=== PATIENT | female | born 1995 | race American Indian/Alaskan Native ===

== ENCOUNTER 2020-02-22 08:07 | Emergency (ER) | payer OTHER ==
[2020-02-22 08:32] VITALS: BP 111/54
[2020-02-22 09:06] LABS: Bacteria,Urine 2+ /HPF (Negative); Bilirubin,Urine NEG (Negative); Blood,Urine SM (Negative); Color,Urine Yellow (Yellow); Mucus,Urine 3+ /HPF; Protein,Urine <15 mg/dL mg/dL (Negative); Urobilinogen,Urine < 2.0 mg/dL (<2.0)
[2020-02-22 09:07] LABS: HCG Qualitative,Urine Negative (Negative)
--- NOTE | 2020-02-22 11:11 | Emergency Department Report ---
ED Female HPI - General Chief complaint: Urogenital-Female Stated complaint: POSSIBLE UTI Time Seen by Provider: 02/22/20 10:58 Source: patient Mode of arrival: Ambulatory Limitations: No Limitations - History of Present Illness Initial comments: This is a 24-year-old female nontoxic well in appearance with no acute signs of distress presents to the ED with complaints of dysuria and urinary frequency. Patient denies any pelvic or abdominal pain. Patient denies any other symptoms or complaitns. Denies any flank pain. Denies any chest pain, SOB, fever, chills, headache, stiff neck, numbness or tingling. Denies any allergies. MD Complaint: dysuria -: days(s) Radiation: non-radiating Severity: mild Severity scale (0 -10): 3 Quality: other (dysuria) Consistency: constant Improves with: none Worsens with: urination Are you Now?: No Associated Symptoms: dysuria. denies: vaginal discharge, vaginal bleeding, abdominal pain, nausea/vomiting, fever/chills, headaches, loss of appetite, hematuria, rash, seizure, shortness of breath, syncope, weakness - Related Data Previous Rx's Medication Instructions Recorded Last Taken Type Sulfamethoxazole/Trimethoprim 1 each PO BID #14 tablet 02/22/20 Unknown Rx [Bactrim DS TAB] Allergies Allergy/AdvReac Type Severity Reaction Status Date / Time No Known Allergies Allergy Unverified 02/22/20 08:28 ED Review of Systems ROS: Stated complaint: POSSIBLE UTI Other details as noted in HPI Constitutional: denies: chills, fever Eyes: denies: eye pain, eye discharge, vision change ENT: denies: ear pain, throat pain Respiratory: denies: cough, shortness of breath, wheezing Cardiovascular: denies: chest pain, palpitations Endocrine: no symptoms reported Gastrointestinal: denies: abdominal pain, nausea, diarrhea Genitourinary: dysuria, frequency. denies: urgency, hematuria, discharge, abnormal menses, dyspareunia Musculoskeletal: denies: back pain, joint swelling, arthralgia Skin: denies: rash, lesions Neurological: denies: headache, weakness, paresthesias Psychiatric: denies: anxiety, depression Hematological/Lymphatic: denies: easy bleeding, easy bruising ED Past Medical Hx - Past Medical History Previous Medical History?: No - Surgical History Past Surgical History?: No - Social History Smoking Status: Never Smoker Substance Use Type: None - Medications Home Medications: Home Medications Medication Instructions Recorded Confirmed Last Taken Type Sulfamethoxazole/Trimethoprim 1 each PO BID #14 tablet 02/22/20 Unknown Rx [Bactrim DS TAB] ED Physical Exam - General Limitations: No Limitations General appearance: alert, in no apparent distress - Head Head exam: Present: atraumatic, normocephalic - Eye Eye exam: Present: normal appearance - Neck Neck exam: Present: normal inspection, full ROM. Absent: tenderness, meningismus, lymphadenopathy - GI/Abdominal GI/Abdominal exam: Present: soft, normal bowel sounds. Absent: distended, tenderness, guarding, rebound, rigid, diminished bowel sounds - Extremities Exam Extremities exam: Present: normal inspection, full ROM - Back Exam Back exam: Present: normal inspection, full ROM. Absent: tenderness, CVA tenderness (R), CVA tenderness (L), muscle spasm, paraspinal tenderness, vertebral tenderness, rash noted - Neurological Exam Neurological exam: Present: alert, oriented X3, normal gait - Psychiatric Psychiatric exam: Present: normal affect, normal mood - Skin Skin exam: Present: warm, dry, intact, normal color. Absent: rash ED Course Vital Signs 02/22/20 08:28 Temperature 97.9 F Pulse Rate 54 L Respiratory 16 Rate Blood Pressure 111/54 [Right] O2 Sat by Pulse 100 Oximetry - Reevaluation(s) Reevaluation #1: 02/22/20 11:05 Patient is speaking in full sentences with no signs of distress noted. ED Medical Decision Making - Medical Decision Making 24-year-old with UTI. Patient is stable and was examined by me. VSS. WIll dc with bactrim. Patient was instructed to Follow-up with a primary care doctor in 3-5 days or if symptoms worsen and continue return to emergency room as soon as possible. At time of discharge, the patient does not seem toxic or ill in appearance. No acute signs of distress noted. Patient agrees to discharge treatment plan of care. No further questions noted by the patient. Critical care attestation.: If time is entered above; I have spent that time in minutes in the direct care of this critically ill patient, excluding procedure time. ED Disposition Clinical Impression: UTI (urinary tract infection) Qualifiers: Urinary tract infection type: acute cystitis Hematuria presence: with hematuria Qualified Code(s): N30.01 - Acute cystitis with hematuria Disposition: TO HOME OR SELFCARE Is pt being admited?: No Does the pt Need Aspirin: No Condition: Stable Instructions: Urinary Tract Infection in Women (ED) Additional Instructions: Follow-up with a primary care doctor in 3-5 days or if symptoms worsen and continue return to emergency room as soon as possible. Prescriptions: Sulfamethoxazole/Trimethoprim [Bactrim DS TAB] 1 each PO BID #14 tablet Referrals: ALDA HEREDIA MD [Primary Care Provider] - 3-5 Days ARGENIS BARAHONA MD [Staff Physician] - 3-5 Days [facility] [Provider Group] - 3-5 Days Forms: Work/School Release Form(ED)
== END 2020-02-22 11:18 | disposition home or self-care (01) ==
LOC: ED 08:07
DX: N39.0 Urinary tract infection, site not specified (principal); Z79.899 Other long term (current) drug therapy
CPT/HCPCS: 81001; 81025; 87076; 87086; 87186; 99283

== ENCOUNTER 2020-10-12 23:25 | Emergency (ER) | payer SELFPAY ==
[2020-10-13 00:55] LABS: Basophils % (Auto) 0.2 % (0.0-1.8); Hematocrit 40.2 % (30.3-42.9); Hemoglobin 13.6 gm/dl (10.1-14.3); Lymphocytes # (Auto) 0.9 K/mm3 (1.2-5.4); Lymphocytes % (Auto) 4.9 % (13.4-35.0); Mean Corpuscular HGB Conc 34 % (30-34); Mean Corpuscular Volume 89 fl (79-97); Monocytes # (Auto) 1.3 K/mm3 (0.0-0.8); Monocytes % (Auto) 7.6 % (0.0-7.3); Platelet Count 218 K/mm3 (140-440); Red Blood Count 4.49 M/mm3 (3.65-5.03); Red Cell Distribution Width 13.7 % (13.2-15.2)
[2020-10-13 00:57] LABS: Bilirubin,Urine NEG (Negative); Blood,Urine MOD (Negative); Color,Urine Yellow (Yellow); Mucus,Urine 3+ /HPF; Urobilinogen,Urine < 2.0 mg/dL (<2.0)
[2020-10-13 01:05] LABS: Alanine Aminotransferase 19 units/L (7-56); Albumin 4.4 g/dL (3.9-5); BUN/Creatinine Ratio 9; Blood Urea Nitrogen 7 mg/dL (7-17); Calcium 9.5 mg/dL (8.4-10.2); Hemolysis Index 2
--- NOTE | 2020-10-13 02:44 | XRay Report ---
CHEST 2 VIEWS INDICATION / CLINICAL INFORMATION: fever. COMPARISON: None available. FINDINGS: SUPPORT DEVICES: None. HEART / MEDIASTINUM: Heart is upper normal size. LUNGS / PLEURA: No significant pulmonary or pleural abnormality. No pneumothorax. ADDITIONAL FINDINGS: No significant additional findings. IMPRESSION: 1. No acute findings. Signer Name: Jigar Damico MD Signed: 10/13/2020 2:39 AM Workstation Name: [id number]
[2020-10-13] MEDS ORDERED: ONDANSETRON 4 MG/2 ML INJ IV ONE (02:59)
[2020-10-13] MEDS ORDERED: SODIUM CHLORIDE 0.9% 1000 ML 1,000 ML IV ONE (02:59)
--- NOTE | 2020-10-13 03:01 | Emergency Department Report ---
- General Chief Complaint: Nausea/Vomiting/Diarrhea Stated Complaint: FEVER/ VOMITING/SORE THROAT PUI?: No Time Seen by Provider: 10/13/20 02:16 Source: patient Mode of arrival: Ambulatory Limitations: No Limitations - History of Present Illness Initial Comments: Patient is a 25-year-old female who presents emergency room with complaints of nausea, vomiting, diarrhea, fever, sore throat, fatigue. Patient states she is not able to hold any food down. Patient states her symptoms started 3 days ago. Patient states that her symptoms are worsening. Patient states she is not feeling well at all. Patient denies chest pain. Patient denies shortness of breath. Patient denies abdominal pain. Patient denies loss of smell. Patient denies sick contacts. Patient denies dysuria. MD Complaint: fever, cough, sore throat -: Sudden, days(s) Severity: severe Consistency: constant Improves With: NSAID, OTC cold medicine Associated Symptoms: fever, chills, sore throat, cough, nausea, vomiting. denies: diaphoresis, headache, rhinorrhea, nasal congestion, stiff neck, chest pain, shortness of breath, abdominal pain, rash, confusion, right sweats, weight loss, epistaxis, hoarseness, ear pain Treatments Prior to Arrival: Acetaminophen, Ibuprofen - Related Data Previous Rx's Medication Instructions Recorded Last Taken Type Sulfamethoxazole/Trimethoprim 1 each PO BID #14 tablet 02/22/20 Unknown Rx [Bactrim DS TAB] Azithromycin [Zithromax TAB] 500 mg PO QDAY 5 Days #5 tablet 10/13/20 Unknown Rx Ondansetron [Zofran Odt] 4 mg PO Q6HR PRN #20 tab.rapdis 10/13/20 Unknown Rx methylPREDNISolone [Medrol 4MG 4 mg PO DAILY 6 Days #1 tab.ds.pk 10/13/20 Unknown Rx DOSEPAK (21 tabs)] Allergies Allergy/AdvReac Type Severity Reaction Status Date / Time No Known Allergies Allergy Unverified 02/22/20 08:28 ED Review of Systems ROS: Stated complaint: FEVER/ VOMITING/SORE THROAT Other details as noted in HPI Constitutional: chills, fever, malaise Eyes: denies: eye pain, eye discharge, vision change ENT: denies: ear pain, throat pain Respiratory: denies: cough, shortness of breath, wheezing Cardiovascular: denies: chest pain, palpitations Endocrine: no symptoms reported Gastrointestinal: nausea, vomiting, diarrhea. denies: abdominal pain, constipation, hematemesis, melena, hematochezia Genitourinary: denies: urgency, dysuria, discharge Musculoskeletal: denies: back pain, joint swelling, arthralgia Skin: denies: rash, lesions Neurological: denies: headache, weakness, paresthesias Psychiatric: denies: anxiety, depression Hematological/Lymphatic: denies: easy bleeding, easy bruising ED Past Medical Hx - Past Medical History Previous Medical History?: No - Surgical History Past Surgical History?: No - Family History Family history: no significant - Social History Smoking Status: Never Smoker Substance Use Type: None - Medications Home Medications: Home Medications Medication Instructions Recorded Confirmed Last Taken Type Sulfamethoxazole/Trimethoprim 1 each PO BID #14 tablet 02/22/20 Unknown Rx [Bactrim DS TAB] Azithromycin [Zithromax TAB] 500 mg PO QDAY 5 Days #5 tablet 10/13/20 Unknown Rx Ondansetron [Zofran Odt] 4 mg PO Q6HR PRN #20 tab.rapdis 10/13/20 Unknown Rx methylPREDNISolone [Medrol 4MG 4 mg PO DAILY 6 Days #1 tab.ds.pk 10/13/20 Unknown Rx DOSEPAK (21 tabs)] ED Physical Exam - General Limitations: No Limitations General appearance: alert, in no apparent distress - Head Head exam: Present: atraumatic, normocephalic - Eye Eye exam: Present: normal appearance - ENT ENT exam: Present: mucous membranes dry - Neck Neck exam: Present: normal inspection - Respiratory Respiratory exam: Present: normal lung sounds bilaterally. Absent: respiratory distress - Cardiovascular Cardiovascular Exam: Present: regular rate, normal rhythm. Absent: systolic murmur, diastolic murmur, rubs, gallop - GI/Abdominal GI/Abdominal exam: Present: soft, normal bowel sounds. Absent: distended, tenderness, guarding, rebound - Extremities Exam Extremities exam: Present: normal inspection - Back Exam Back exam: Present: normal inspection - Neurological Exam Neurological exam: Present: alert, oriented X3 - Psychiatric Psychiatric exam: Present: normal affect, normal mood - Skin Skin exam: Present: warm, dry, intact, normal color. Absent: rash ED Course Vital Signs 10/12/20 10/13/20 10/13/20 23:43 03:01 04:01 Temperature 103.0 F H Pulse Rate 122 H 99 H 99 H Respiratory 18 20 25 H Rate Blood Pressure 141/89 128/69 132/73 O2 Sat by Pulse 99 98 100 Oximetry 10/13/20 10/13/20 05:00 05:01 Temperature 103.1 F H Pulse Rate 104 H Respiratory 25 H Rate Blood Pressure 136/76 O2 Sat by Pulse 99 Oximetry - Reevaluation(s) Reevaluation #1: Patient states she is feeling better. 10/13/20 03:52 Reevaluation #2: Patient has received fluids and antibiotics and steroids. Patient states he is feeling much better. Patient denies nausea and vomiting. 10/13/20 04:32 Reevaluation #3: I discussed all results and clinical findings with patient. I discussed plan of care with patient. Patient agrees with plan of care. Patient is stable for discharge. Patient will be discharged home. Patient given discharge instructions. Patient voiced understanding of discharge instructions. 10/13/20 05:29 ED Medical Decision Making - Lab Data Result diagrams: 10/12/20 23:55 10/12/20 23:55 - Radiology Data Radiology results: image reviewed interpreted by me: Chest x-ray: No pneumonia, no pneumothorax, no foreign body, no osseous findings, no acute findings CHEST 2 VIEWS INDICATION / CLINICAL INFORMATION: fever. COMPARISON: None available. FINDINGS: SUPPORT DEVICES: None. HEART / MEDIASTINUM: Heart is upper normal size. LUNGS / PLEURA: No significant pulmonary or pleural abnormality. No pneumothorax. ADDITIONAL FINDINGS: No significant additional findings. IMPRESSION: 1. No acute findings. - Medical Decision Making Patient is a 25-year-old female that presents emergency room with complaints of upper respiratory symptoms to include cough, chills, nausea, vomiting, diarrhea. Patient has not been tested for Covid 19 as an outpatient. Patient had labs done which essentially unremarkable except for elevated WBC and UTI on UA.. Patient had a chest x-ray which was negative for acute findings and pneumonia. Patient was given multiple medications in the ER to include fluids, Rocephin, Zithromax, Decadron, Zofran. Patient responded well to treatment. Patient felt better after treatment. Patient's fever improved. Patient did not have any further nausea or vomiting in the ER. Patient clinical findings are consistent with URI and a PUI and Covid infection and UTI. Patient stable for discharge. Patient discharged home. - Differential Diagnosis Fever, Covid, flu, strep, sore throat, nausea vomiting, diarrhea Critical care attestation.: If time is entered above; I have spent that time in minutes in the direct care of this critically ill patient, excluding procedure time. ED Disposition Clinical Impression: Person under investigation for COVID-19, Sore throat Fever Qualifiers: Fever type: unspecified Qualified Code(s): R50.9 - Fever, unspecified URI (upper respiratory infection) Qualifiers: URI type: unspecified URI Qualified Code(s): J06.9 - Acute upper respiratory infection, unspecified Nausea & vomiting Qualifiers: Vomiting type: unspecified Vomiting Intractability: non-intractable Qualified Code(s): R11.2 - Nausea with vomiting, unspecified Disposition: DC-01 TO HOME OR SELFCARE Is pt being admited?: No Does the pt Need Aspirin: No Condition: Stable Instructions: Cough, Adult, Sore Throat, Upper Respiratory Infection, Adult, [id number], Fever, Adult, Cough, Adult, [id number], Prevent the Spread of COVID-19 if You Are Sick - CDC, COVID-19, COVID-19: How to Protect Yourself and Others - CDC, COVID-19 Additional Instructions: Patient to follow-up with primary care in 2 to 3 days. Patient to follow-up with health department and outpatient Covid testing in 2 to 3 days. Patient to self quarantine for 10 to 14 days. Patient to rest. Patient to start vitamin D, zinc and vitamin C supplements. Patient to take Tylenol or ibuprofen as needed for pain. Patient to take meds as directed. Patient to return to the ER if condition worsens, changes or new symptoms arise. Prescriptions: methylPREDNISolone [Medrol 4MG DOSEPAK (21 tabs)] 4 mg PO DAILY 6 Days #1 tab.ds.pk Azithromycin [Zithromax TAB] 500 mg PO QDAY 5 Days #5 tablet Ondansetron [Zofran Odt] 4 mg PO Q6HR PRN #20 tab.rapdis PRN Reason: Nausea And Vomiting Referrals: HOSEA CUNHA MD [Primary Care Provider] - 2-3 Days Time of Disposition: 05:29
[2020-10-13] MEDS ORDERED: dexAMETHasone 4 MG/ML VIAL IV ONE (03:57)
[2020-10-13] MEDS ORDERED: AZITHROMYCIN/NS 500 MG/250 ML 500 MG/250 ML BAG IV ONE (03:57)
[2020-10-13] MEDS ORDERED: cefTRIAXone/NS 2 GM/100 ML 2 GM/100 ML BAG IV ONE (03:57)
[2020-10-13] MEDS ORDERED: ACETAMINOPHEN 325 MG TAB PO ONE (05:05)
[2020-10-13 05:09] VITALS: BP 136/76
== END 2020-10-13 06:00 | disposition home or self-care (01) ==
LOC: ED 23:25
DX: J06.9 Acute upper respiratory infection, unspecified (principal); J02.9 Acute pharyngitis, unspecified; R11.2 Nausea with vomiting, unspecified; R50.9 Fever, unspecified; Z79.899 Other long term (current) drug therapy; Z20.828 Contact with and (suspected) exposure to other viral communicable diseases
CPT/HCPCS: 36415; 71046; 80053; 81001; 85025; 87116; 87400; 87430; 96361; 96365; 96368; 96375; 99284; J0456; J0696; J1100; J2405; J7030